=== PATIENT | female | born 1975 | race Two or more races ===

== ENCOUNTER 2019-10-27 17:17 | Emergency (ER) | payer OTHER ==
[~2019-10-27] VITALS: Ht 165.1 cm; Wt 54.0 kg
== END 2019-10-27 19:27 | disposition home or self-care (01) ==
LOC: ER 17:17
DX: S60.211A Contusion of right wrist, initial encounter (principal); W18.09XA Striking against other object with subsequent fall, initial encounter; Y93.89 Activity, other specified; Y92.098 Other place in other non-institutional residence as the place of occurrence of the external cause; Y99.8 Other external cause status